=== PATIENT | female | born 1985 ===

== ENCOUNTER → 2020-03-02 | Outpatient (CLI) | payer OTHER ==
[2020-03-02 22:24] LABS: TRICHOMONAS VAGINALIS DNA NEGATIVE (NEGATIVE)
== END ==
LOC: LAB.R 08:00
PROVIDERS: ATTEND Advanced Practice Midwife
DX: Z34.80 Encounter for supervision of other normal pregnancy, unspecified trimester (principal); Z36.85 Encounter for antenatal screening for Streptococcus B
CPT/HCPCS: 87491; 87591; 87661; 87797

== ENCOUNTER 2020-03-13 12:05 | Outpatient (CLI) | payer OTHER ==
[2020-03-13 12:44] LABS: HGB - HEMOGLOBIN 11.9 g/dL (12.0-16.0); MEAN CORPUSCULAR HEMOGLOBIN 29.7 pg (27.0-31.0); MEAN CORPUSCULAR HGB CONC 32.9 g/dL (32.0-36.0); MEAN CORPUSCULAR VOLUME 90.3 fL (81.0-99.0); MEAN PLATELET VOLUME 10.3 fL (7.9-10.8); RED BLOOD COUNT 4.01 10^6/uL (4.20-5.40); RED CELL DISTRIBUTION WIDTH 13.2 % (12.0-15.0); WHITE BLOOD COUNT 9.3 x10^3/uL (4.8-10.8)
[2020-03-13 12:56] LABS: ALBUMIN 3.1 g/dL (3.2-5.5); BILIRUBIN,DIRECT 0.1 mg/dL (0.1-0.5); BILIRUBIN,TOTAL 0.4 mg/dL (0.2-1.0); TOTAL PROTEIN 6.4 g/dL (6.7-8.2)
== END 2020-03-13 12:06 | disposition home or self-care (01) ==
LOC: LAB 12:05
PROVIDERS: ATTEND Obstetrics & Gynecology
DX: O26.619 Liver and biliary tract disorders in pregnancy, unspecified trimester (principal); O26.899 Other specified pregnancy related conditions, unspecified trimester; L29.8 Other pruritus; Z3A.00 Weeks of gestation of pregnancy not specified
CPT/HCPCS: 80076; 82542; 85027

== ENCOUNTER 2020-05-03 12:41 | Outpatient (CLI) | payer OTHER ==
--- NOTE | 2020-05-03 13:03 | XRAY Report ---
PROCEDURE: Forearm LT INDICATIONS: ARM PAIN TECHNIQUE: 2 views of the forearm were acquired. COMPARISON: None. FINDINGS: Bones: No fractures or dislocations. No suspicious bony lesions. Soft tissues: A skin BB marker is noted over the dorsal aspect of the left forearm at the patient di rected area of palpable concern. No underlying soft tissue abnormalities or radiopaque soft tissue fo reign bodies. No suspicious soft tissue calcifications or masses. IMPRESSION: Left radius/ulna without acute radiographic abnormalities. No radiographic abnormalities, specifically no radiopaque soft tissue foreign bodies identified at th e patient directed area of palpable concern as indicated by skin BB marker. Reviewed by: Magan Woodson MD on 05/03/2020 1:02 PM PDT Approved by: Magan Woodson MD on 05/03/2020 1:02 PM PDT Station ID: [id number]
== END 2020-05-03 12:42 | disposition home or self-care (01) ==
LOC: DI 12:41
PROVIDERS: ATTEND Nurse Practitioner Obstetrics & Gynecology
DX: M79.609 Pain in unspecified limb (principal)

== ENCOUNTER 2020-05-15 13:07 | Outpatient (CLI) | payer OTHER ==
--- NOTE | 2020-05-15 16:13 | Ultrasound Report ---
PROCEDURE: Ext Limited Non Vascular INDICATIONS: ARM PAIN, POSSIBLE FORIEGN BODY TECHNIQUE: Real-time scanning was performed of the left forearm, with image documentation. COMPARISON: X-ray 05/03/2020 FINDINGS: In the area of concern, there is partial thrombosis of the superficial forearm vein demons trated by partial compressibility, expansile hypoechoic material and diminished internal flow. This e xtends for a total length of about 2.6 cm and does not extend into the deep venous system. IMPRESSION: 1. Superficial thrombophlebitis in the area of abnormality. This may result from prior IV catheter pl acement. 2. No sonographic evidence of foreign body. Reviewed by: Zhanna Lambert MD on 05/15/2020 4:12 PM PDT Approved by: Zhanna Lambert MD on 05/15/2020 4:12 PM PDT Station ID: [id number]
== END 2020-05-15 13:08 | disposition home or self-care (01) ==
LOC: DI 13:07
PROVIDERS: ATTEND Nurse Practitioner Obstetrics & Gynecology
DX: I80.8 Phlebitis and thrombophlebitis of other sites (principal)
CPT/HCPCS: 76882

== ENCOUNTER 2020-05-16 14:45 | Outpatient (CLI) | payer OTHER ==
--- NOTE | 2020-05-16 15:48 | Ultrasound Report ---
PROCEDURE: Pelvic w/Transvaginal INDICATIONS: CARE OF LACTATING MOTHER TECHNIQUE: Real-time scanning was performed of the pelvic organs, with image documentation. Additional endovagi nal scanning was necessary due to incomplete visualization of the adnexal and endometrial structures by transabdominal scanning. COMPARISON: None. FINDINGS: Transabdominal scanning: Limited scanning through the kidneys shows no hydronephrosis. No pathologi c free abdominal or pelvic fluid. Endovaginal scanning: Uterus: Uterus is normal in size at 4.5 x 7.3 x 8.8 cm. The endometrium measures 13 mm in combined thickness. Ovaries: Normal bilaterally measuring up to 3.3 cm on the right and 3.2 cm on the left. IMPRESSION: The patient is recently . No discrete retained products of conception are found. The endome trial lining is mildly heterogeneous but a discrete endometrial mass or abnormal fluid collection is not found. Reviewed by: Jamey Lowe MD on 05/16/2020 3:47 PM PDT Approved by: Jamey Lowe MD on 05/16/2020 3:47 PM PDT Station ID: [id number]
== END 2020-05-16 14:46 | disposition home or self-care (01) ==
LOC: DI 14:45
PROVIDERS: ATTEND Advanced Practice Midwife
DX: O72.2 Delayed and secondary postpartum hemorrhage (principal)
CPT/HCPCS: 76830; 76856

== ENCOUNTER 2021-05-07 12:47 | Emergency (ER) | payer OTHER ==
[2021-05-07 13:11] VITALS: BP 136/74
[2021-05-07] MEDS ORDERED: cephALEXin 250 MG CAPSULE PO STA (13:19)
--- NOTE | 2021-05-07 13:21 | ED Physician Documentation ---
History of Present Illness - Stated complaint Stated Complaint: LEFT BREAST PX - Chief complaint Chief Complaint: General - History obtained from History obtained from: Patient - History of Present Illness Timing: How many days ago (3) Pain level max: 5 Pain level now: 4 - Additonal information Additional information: Patient is a 35-year-old female who is currently breast-feeding. Started developing breast redness and swelling 3 days ago. Worse with palpation, nothing makes it better. Has had chills. No fevers that she is aware of. The swelling and redness is to the left breast. No nausea or vomiting. No diarrhea. No abdominal pain. No cough. No congestion. Her child is 13 months old. Review of Systems Constitutional: reports: Chills. denies: Fever Nose: denies: Rhinorrhea / runny nose, Congestion Throat: denies: Sore throat Respiratory: denies: Dyspnea, Cough, Wheezing GI: denies: Abdominal Pain, Nausea, Vomiting, Diarrhea : denies: Dysuria, Frequency, Hesitancy Skin: denies: Rash Musculoskeletal: denies: Neck pain, Back pain Neurologic: denies: Headache PD PAST MEDICAL HISTORY - Past Medical History Cardiovascular: None Respiratory: None Neuro: None Endocrine/Autoimmune: None GI: GERD : None Musculoskeletal: None - Present Medications Home Medications: Ambulatory Orders Medication Instructions Recorded Confirmed cephALEXin [Keflex] 500 mg PO Q6H #28 cap 05/07/21 - Allergies Allergies/Adverse Reactions: Allergies Allergy/AdvReac Type Severity Reaction Status Date / Time No Known Drug Allergies Allergy Verified 05/07/21 13:11 - Social History Smoking Status: Former smoker PD ED PE NORMAL - Vitals Vital signs reviewed: Yes - General General: Alert and oriented X 3, No acute distress - HEENT HEENT: Moist mucous membranes - Neck Neck: Supple, no meningeal sign - Cardiac Cardiac: RRR - Respiratory Respiratory: No respiratory distress, Clear bilaterally - Abdomen Abdomen: Soft, Non tender, Non distended - Derm Derm: Warm and dry - Neuro Neuro: Alert and oriented X 3 - Psych Psych: Normal mood, Normal affect - Free text exam Free text exam: erythema and swelling to the left breast. No palpable abscesses. No drainage. The erythema is approximately 5 x 4 cm to the lateral breast Results - Vitals Vitals: Vital Signs - 24 hr 05/07/21 13:08 Temperature 36.7 C Heart Rate 66 Respiratory 16 Rate Blood Pressure 136/74 H O2 Saturation 98 Oxygen O2 Source Room air PD MEDICAL DECISION MAKING - ED course Complexity details: considered differential, d/w patient ED course: 35-year-old female with left breast mastitis. We will place on Keflex. Encouraged her to continue breast-feeding. No evidence of abscess or necrotizing soft tissue infection. Patient counseled regarding signs and symptoms for which I believe and urgent re-evaluation would be necessary. Patient with good understanding of and agreement to plan and is comfortable going home at this time This document was made in part using voice recognition software. While efforts are made to proofread this document, sound alike and grammatical errors may occur. Departure - Departure Disposition: 01 Home, Self Care Clinical Impression: Mastitis Condition: Good Instructions: ED Breast Infec Follow-Up: your,doctor in 1 week if not better [Other] Prescriptions: cephALEXin [Keflex] 500 mg PO Q6H #28 cap Comments: Your prescriptions were sent to [facility] in [place]. Please take all antibiotics until gone. This should start to improve within the next 24 hours. You can continue breast-feeding. Warm compresses may also help. Return if you worsen.
== END 2021-05-07 13:49 | disposition home or self-care (01) ==
LOC: ED 12:47
DX: N61.0 Mastitis without abscess (principal); Z87.891 Personal history of nicotine dependence
CPT/HCPCS: 99282; 99284; A9270

== ENCOUNTER 2021-10-14 11:17 | Outpatient (CLI) | payer OTHER ==
--- NOTE | 2021-10-14 12:58 | XRAY Report ---
PROCEDURE: Ankle 3 View LT INDICATIONS: LEFT ANKLE SPRAIN TECHNIQUE: 3 views of the ankle were acquired. COMPARISON: None FINDINGS: Bones: No fractures or dislocations. Ankle mortise is normally aligned. No suspicious bony lesions . Soft tissues: No tibiotalar joint effusion. Achilles tendon appears normal. Lateral soft tissue sw elling noted. IMPRESSION: Soft tissue swelling without fracture or foreign body Reviewed by: Parminder Myers MD on 10/14/2021 11:57 AM [facility] Approved by: Parminder Myers MD on 10/14/2021 11:57 AM [facility] Station ID: [id number]
== END 2021-10-14 23:59 | disposition home or self-care (01) ==
LOC: DI.N 11:17
PROVIDERS: ATTEND Physician Assistant Medical
DX: S93.402A Sprain of unspecified ligament of left ankle, initial encounter (principal); R93.6 Abnormal findings on diagnostic imaging of limbs; R93.89 Abnormal findings on diagnostic imaging of other specified body structures